=== PATIENT | female | born 1995 | race Asian ===

== ENCOUNTER 2017-12-05 17:04 | Emergency (ER) | payer BC ==
[~2017-12-05] VITALS: Ht 162.6 cm; Wt 54.9 kg
[2017-12-05 17:09] VITALS: TEMP 36.7; Ht 162.6 cm; Wt 54.9 kg
[2017-12-05 17:40] VITALS: O2SAT 99
[2017-12-05 18:16] LABS: ISTAT CREATININE 0.8 mg/dl; ISTAT IONIZED CALCIUM 1.19 mmol/l; ISTAT POTASSIUM 3.6 mEq/L (3.3-5.0)
[2017-12-05 19:09] VITALS: BP 118/72; PULSE 78; O2SAT 98
--- NOTE | 2017-12-06 00:11 | EMERGENCY ROOM VISIT NOTE ---
History Report prepared by Pawel: Jose Elias Sarabia Under the Supervision of: Dr. Aaron Schwartz M.D. First contact with patient: 17:11 Chief Complaint: OTHER COMPLAINT Stated Complaint: FATIGUE,WEAK History of Present Illness The patient is a 22 year old female who presents to the Emergency Room with complaints of persistent/worsening fatigue that the patient has been experiencing for the past 3 months. The patient states that she has been usually tired since the semester began in September. Recently she notes that "I have been getting tired to the point where I cannot do anything." There have not been any syncopal episodes but she does note a couple times where she experienced near syncopal episodes, which she describes as "feel everything going black." She notes that she does feel stress, but nothing uncommon for her during the semester. There has not been any other chest pain, difficulty breathing, vaginal bleeding, heavy menstrual cycles, fevers, or blood stools. Source of History: patient Onset: 3 months Position: other (Global) Quality: other (Fatigue, tiredness) Timing: worsening, other (Persistent) Associated Symptoms: No chest pain, No SOB Review of Systems See HPI for pertinent positives and negatives. A total of ten systems were reviewed and were otherwise negative. Past Medical & Surgical Patient reports n/a Family History Patient reports no known family medical history. Social History Smoking Status: Never Smoker Marital Status: single Housing Status: lives with roommate Occupation Status: student Current/Historical Medications No Active Prescriptions or Reported Meds Allergies Coded Allergies: No Known Allergies (Unverified , 12/05/17) Physical Exam Vital Signs Date Time Temp Pulse Resp B/P (MAP) Pulse Ox O2 Delivery O2 Flow Rate FiO2 12/05/17 19:09 78 20 118/72 98 12/05/17 17:41 85 12/05/17 17:40 99 Room Air 12/05/17 17:09 36.7 88 16 122/83 99 Room Air Physical Exam Physical Exam GENERAL: She is oriented to person, place, and time. She appears well- developed and well-nourished. She does not appear distressed. ____ HENT: Exam performed. Head: Normocephalic and atraumatic. Right Ear: External ear normal. No mastoid tenderness. Left Ear: External ear normal. No mastoid tenderness. Mouth/Throat: The oropharynx is clear and moist. No trismus in the jaw. No dental abscesses or uvula swelling. No oropharyngeal exudate or tonsillar abscesses. ____ EYES: Conjunctivae and EOM are normal. Pupils are equal, round, and reactive to light. Right eye exhibits no discharge. Left eye exhibits no discharge. No scleral icterus. ____ NECK: Normal range of motion. Neck supple. No JVD present. No spinous process tenderness present. No carotid bruit present. No rigidity. No tracheal deviation and normal range of motion present. No Brudzinski's sign and no Kernig 's sign noted. ____ CV: Normal rate, regular rhythm, normal heart sounds and intact distal pulses. There is no peripheral edema. Palpable radial pulses bue. ____ PULM/CHEST: Effort normal and breath sounds normal. No respiratory distress. No stridor. She has no wheezes. She has no rales. Chest Wall: She exhibits no tenderness. ____ ABD: The abdomen is soft. Bowel sounds are normal. She has no distension. No mass is present. There is no tenderness. There is no rebound, no guarding, no Anderson's sign and no tenderness at McBurney's point. Rovsig negative MUSC/SKEL: Normal range of motion. There is no peripheral edema, tenderness or deformity. LYMPH: No cervical adenopathy. ____ NEURO: She is alert and oriented to person, place, and time. She has normal strength. No cranial nerve deficit or sensory deficit. Coordination and gait normal. GCS eye subscore is 4. GCS verbal subscore is 5. GCS motor subscore is 6. Cerebellar tests wnl. ____ SKIN: Skin is warm and dry. She is not diaphoretic. ____ PSYCH: She has a normal mood and affect. Her behavior is normal. Judgment and thought content normal. ____ Medical Decision & Procedures Laboratory Results Test 12/05/17 17:35 12/05/17 17:55 12/05/17 18:05 Urine Color YELLOW Urine Appearance CLEAR (CLEAR) Urine pH 6.5 (4.5-7.5) Urine Specific [place] 1.021 (1.000-1.030) Urine Protein NEG (NEG) Urine Glucose (UA) NEG (NEG) Urine Ketones NEG (NEG) Urine Occult Blood NEG (NEG) Urine Nitrite NEG (NEG) Urine Bilirubin NEG (NEG) Urine Urobilinogen NEG (NEG) Urine Leukocyte Esterase TRACE (NEG) Urine WBC (Auto) 5-10 /hpf (0-5) Urine RBC (Auto) 0-4 /hpf (0-4) Urine Hyaline Casts (Auto) 1-5 /lpf (0-5) Urine Epithelial Cells (Auto) >30 /lpf (0-5) Urine Bacteria (Auto) NEG (NEG) Urine Test NEG (NEG) Monoscreen NEG (NEG) Bedside Hemoglobin 12.2 g/dl (12.0-16.0) Bedside Hematocrit 36 % (37-47) Bedside Sodium 139 mEq/L (135-144) Bedside Potassium 3.6 mEq/L (3.3-5.0) Bedside Chloride 103 mEq/L (101-112) Bedside Total CO2 25 mEq/l (24-31) Anion Gap 16.0 mmol/L (16-25) Bedside Blood Urea Nitrogen 10 mg/dl (7-18) Bedside Creatinine 0.8 mg/dl Bedside Glucose (other) 104 mg/dl (70-99) Bedside Ionized Calcium ([place]) 1.19 mmol/l Laboratory results reviewed by me ECG Per My Interpretation Indication: other (Fatigue/tired) Rate (beats per minute): 72 Rhythm: normal sinus Findings: other ([place], QTC, QRS within normal limites, no TABBY/STD) ED Course 1715: The patient was evaluated in room C3. A complete history and physical exam was performed. 1856: Vital signs stable. Labs and EKG within normal limits. DISCHARGE - Plan of care discussed with patient and questions answered. The patient was given both verbal and printed discharge instructions. The patient verbalized understanding and ability to comply. The patient is to seek outpatient follow up as noted in the discharge instructions. The patient verbalized understanding and ability to comply. The patient is discharged in stable condition. The patient was instructed to return for worsening symptoms. Medical Decision Vital signs stable. Labs and EKG within normal limits. DISCHARGE - Plan of care discussed with patient and questions answered. The patient was given both verbal and printed discharge instructions. The patient verbalized understanding and ability to comply. The patient is to seek outpatient follow up as noted in the discharge instructions. The patient verbalized understanding and ability to comply. The patient is discharged in stable condition. The patient was instructed to return for worsening symptoms. Medication Reconcilliation Current Medication List: was personally reviewed by me Blood Pressure Screening Patient's blood pressure: Normal blood pressure Impression Primary Impression: Lethargy Additional Impressions: Near syncope Stress Scribe Attestation The scribe's documentation has been prepared under my direction and personally reviewed by me in its entirety. I confirm that the note above accurately reflects all work, treatment, procedures, and medical decision making performed by me. The chart was completed utilizing [employer] Speech voice recognition software. Grammatical errors, random word insertions, pronoun errors, and incomplete sentences are an occasional consequence of this system due to software limitations, ambient noise, and hardware issues. Any formal questions or concerns about the content, text, or information contained within the body of this dictation should be directly addressed to the physician for clarification. Departure Information Dispostion Home / Self-Care Prescriptions No Active Prescriptions or Reported Meds Referrals No Doctor, Assigned (PCP) Forms HOME CARE DOCUMENTATION FORM, IMPORTANT VISIT INFORMATION, WORK / SCHOOL INSTRUCTIONS Patient Instructions My [facility] Additional Instructions Return to the emergency department if you develop fever greater than 100.4, chest pain, difficulty breathing, cough up blood, blood in your stools, excessive vaginal bleeding, blood in your urine, abdominal pain, have a seizure , lose consciousness, or your symptoms become worse. Problem Qualifiers
== END 2017-12-05 19:10 | disposition home or self-care (01) ==
LOC: C.EDB 17:08 → C.EDC 19:10
DX: R53.83 Other fatigue (principal); R55 Syncope and collapse; F43.9 Reaction to severe stress, unspecified